=== PATIENT | female | born 1960 | race Caucasian/White ===

== ENCOUNTER 2017-12-17 05:19 | Inpatient (IN) | payer OTHER, MEDICARE ==
[~2017-12-17] VITALS: Ht 160 cm; Wt 73.6 kg
[~2017-12-17 05:19] MED LIST: ABIL10TA8 PO; CLON2TAB PO; CYCL7.5E EACH EYE; EFFE150C PO; VENL75XR PO; WELL200T PO
[2017-12-17] MEDS ORDERED: LACTATED RINGER'S 1000 ML IV PRN (05:45)
[2017-12-17] MEDS ORDERED: METOPROLOL TARTRATE 25 MG TAB PO PRN (06:00)
[2017-12-17] MEDS ORDERED: CHLORHEXIDINE GLUCONATE 2 % 1 PACK (2 CLOTHS) TOPICAL PRN (06:00)
[2017-12-17] MEDS ORDERED: VANCOMYCIN 1000 MG/NS 250 ML (for <70 kg) IV SCH ×2 (06:00)
[2017-12-17] MEDS ORDERED: SODIUM CHLORID 0.9% 500 ML IV PRN (06:00)
[2017-12-17] MEDS ORDERED: POVIDONE IODINE 5% (ANTISEPSIS KIT) 4 APPLICATIONS EACH NARE PRN (06:00)
[2017-12-17] MEDS ORDERED: ceFAZolin 2 GM PREMIX 50 ML IV SCH (06:00)
[2017-12-17] MEDS ORDERED: CHLORHEXIDINE GLUCONATE 4% SOLN 120 ML BTL TOPICAL SCH (06:00)
[2017-12-17] MEDS ORDERED: FAMOTIDINE 20 MG/2 ML VIAL ONE (06:38)
[2017-12-17 06:57] LABS: AUTOMATED NEUTROPHIL # 2.6 TH/MM3 (1.8-7.7); BASOPHIL % 0.5 % (0.0-2.0); EOSINOPHIL # 0.1 TH/MM3 (0-0.4); EOSINOPHIL % 1.4 % (0.0-4.0); HEMATOCRIT 34.2 % (35.0-46.0); LYMPH % 39.6 % (9.0-44.0); MEAN CELL VOLUME 77.4 FL (80.0-100.0); MEAN CORPUSCULAR HGB CONC 32.3 % (32.0-36.0); MEAN PLATELET VOLUME 7.4 FL (7.0-11.0); MONOCYTE # 0.4 TH/MM3 (0-0.9); NEUT % 51.5 % (16.0-70.0); PLATELET COUNT 408 TH/MM3 (150-450); RED BLOOD COUNT 4.42 MIL/MM3 (4.00-5.30); RED CELL DISTRIBUTION WIDTH 17.9 % (11.6-17.2); WHITE BLOOD COUNT 5.1 TH/MM3 (4.0-11.0)
[2017-12-17 07:14] LABS: CALCIUM 8.6 MG/DL (8.5-10.1); CREATININE 0.66 MG/DL (0.50-1.00)
[2017-12-17] MEDS ORDERED: WHEEMIS3 (07:16)
[2017-12-17] MEDS ORDERED: WALKER/ADULT/FO1 MIS (07:16)
[2017-12-17] MEDS ORDERED: HYDR-3583 PO (07:16)
[2017-12-17] MEDS ORDERED: GABA300C5 PO (07:16)
[2017-12-17] MEDS ORDERED: MIDAZOLAM HCL 2 MG/2 ML VIAL ONE ×2 (07:51→11:10)
[2017-12-17] MEDS ORDERED: TRANEXAMIC ACID IV SCH (08:30)
[2017-12-17] MEDS ORDERED: SODIUM CHLORIDE 0.9% IV SCH (08:30)
[2017-12-17] MEDS ORDERED: BUPIVACAINE HCL PF 0.5% 30 ML VIAL ONE (08:40)
[2017-12-17] MEDS ORDERED: GENTAMICIN SULFATE 80 MG/2 ML VIAL ONE (08:43)
[2017-12-17] MEDS ORDERED: BUPIVACAINE/EPINEPHRINE 0.25% 50 ML VIAL ONE (08:43)
[2017-12-17] MEDS ORDERED: ceFAZolin INJ 1,000 MG VIAL ONE (08:44)
--- NOTE | 2017-12-17 10:16 | PD.OP ---
cc: Zachary Dooley MD Operative Report Date of Surgery: Dec 17, 2017 Preoperative Diagnosis: Severe left leg pain, peripheral neuropathy, history of left knee arthrodesis Postoperative Diagnosis: Procedure: Left above-knee amputation, removal of hardware left femur Anesthesia: Gen. Surgeon: Zachary Dooley Platform Man(s): LAURE Carpenter PA-C The surgical procedure was assisted by my physician field assistant. My P.A. presence was necessary throughout this case for the manipulation and positioning of the surgical extremity. My P.A. was assisting me throughout the duration of this procedure. The skill set of a physician field assistant was medically necessary to complete this procedure. During the surgical case the regional vice president surgical sales was working at the back table and the physician field assistant was directly assisting me. Operation and Findings: Citlaly has a very complex history regarding her left leg. She has had previous left knee replacements but developed severe pain and subsequently underwent revision. This also resulted in severe pain. She then went on to a knee arthrodesis. She has had continued chronic severe pain and difficulty ambulating secondary to severe leg length discrepancy. Patient wished to proceed with above-knee amputation and removal of hardware. Informed consent was obtained preoperatively and operative site was marked. Treatment options were discussed with patient and informed consent was obtained after detailed discussion of the risk and benefits. Patient was brought to the OR and placed on the OR table. IV sedation and GETA were administered by anesthesia and IV antibiotics were given. The left leg was prepped with alcohol, followed by Hibiclens and draped in the usual sterile fashion. Time out procedure was performed. The procedure began with a standard incision for above amputation. The subcutaneous tissue was dissected with Bovie. The quadriceps muscle and fascia were incised with Bovie. The hamstring muscles were also incised. Soft tissue was retracted from the femur. The sciatic nerve and femoral vessels were identified. Vessels were ligated with silk suture ties. Sciatic nerve was also ligated with a silk suture tie. Nerve sheath was injected with quarter percent Marcaine. The nerve was now transected proximal to the level of the femur cut. The remainder of the posterior flap was now incised using a Bovie. Oscillating saw and Gigli saw were used to cut through the femur. At this point attention was turned hardware removal. The bone of the femur was cut circumferentially. Attempts are made to remove the intramedullary nail from the femur. After unsuccessful attempts of directly pulling the proximal end of the nail out of the femur attention was turned towards removing the lower extremity from around the nail. An incision was made along the area of the distal leg from the patella down to the proximal tibia. Full-thickness flaps were elevated. Using an oscillating saw a window was cut in the proximal end of the tibia to allow for further visualization of the nail. The tibia was now loosened from the adela. The lower extremity was now removed from the intramedullary adela. At this point large by prescription were placed around the distal end of the nail. Using a mallet the nail was back slapped and removed from the femur. Attention was now turned back towards the amputation. At this point, attention was turned to hemostasis. The wound was thoroughly irrigated. All areas of bleeding were identified and hemostasis was obtained. The edges of the bone were smoothed with a rasp. A drain was placed deep. Attention was now turned to closure. Drill holes were made in the femur. A myodesis was performed of the abductor tendon and quadriceps tendon. The quadriceps fascia was now closed to the posterior hamstring fascia with #1 Vicryl. The subcutaneous tissues were closed with 3-0 Vicryl and skin was closed with 3-0 nylon. Sterile dressings were applied. The patient was awakened and transferred to recovery in stable condition. Needle and sponge counts were correct. Zachary Dooley MD Dec 17, 2017 10:16
[2017-12-17] MEDS ORDERED: DO NOT ADM ANY ANTICOAGULANT DRUGS PRN (10:45)
[2017-12-17] MEDS ORDERED: ASPI-516 CHEW (11:00)
[2017-12-17] MEDS ORDERED: *morphine SULFATE 4 MG/ML PERIprocedure ONLY ONE ×2 (11:29→11:37)
[2017-12-17] MEDS ORDERED: LIDOCAINE HCL 1% PF 5 ML SYRINGE OTHER ONE (12:00)
[2017-12-17] MEDS ORDERED: ONDANSETRON HCL 4 MG/2 ML VIAL IV PUSH ONE (12:00)
[2017-12-17] MEDS ORDERED: GLYCOPYRROLATE 1 MG/5 ML SYRINGE IV PUSH ONE (12:00)
[2017-12-17] MEDS ORDERED: LACTATED RINGER'S 1000 ML INJ 1,000 ML IV ONE (12:00)
[2017-12-17] MEDS ORDERED: ePHEDrine/NS 25 MG/5 ML SYRINGE IV ONE (12:00)
[2017-12-17] MEDS ORDERED: DEXAMETHASONE SOD PHOS 4 MG/ML VIAL IV ONE (12:00)
[2017-12-17] MEDS ORDERED: PROPOFOL 200 MG/20 ML AMP IV ONE (12:00)
[2017-12-17] MEDS ORDERED: PHENYLEPH/NS 1000 MCG/10 ML SYR IV ONE (12:00)
[2017-12-17] MEDS: ACETAMINOPHEN/HYDROcodone 325 MG/10 MG TAB PO PRN ×4 (12:21→22:58)
[2017-12-17] MEDS: MORPHINE SULFATE 4 MG/ML INJ IV PUSH PRN ×3 (14:37→22:22)
[2017-12-17 19:40] VITALS: BP 104/73; PULSE 93; RESP 17; TEMP 97.2; O2SAT 94
[2017-12-17] MEDS: buPROPion HCL 100 MG SUSTAINED RELEASE TAB PO SCH (19:42)
[2017-12-17] MEDS: clonazePAM 1 MG TAB PO SCH (19:42)
[2017-12-17] MEDS: ASPIRIN 81 MG CHEW TAB CHEW SCH (19:43)
[2017-12-17 20:30] VITALS: O2SAT 95
[2017-12-17] MEDS ORDERED: PTOWN: RESTASIS (CYCLOSPORINE) 0.05% 1 DROP EACH EYE BID EACH EYE SCH (21:00)
[2017-12-17 23:45] VITALS: BP 106/77; PULSE 105; RESP 17; TEMP 98.4; O2SAT 94
[2017-12-18] MEDS: MORPHINE SULFATE 4 MG/ML INJ IV PUSH PRN ×6 (01:33→18:34)
[2017-12-18] MEDS: ACETAMINOPHEN/HYDROcodone 325 MG/10 MG TAB PO PRN ×6 (02:08→19:42)
[2017-12-18 04:00] VITALS: BP 103/59; PULSE 90; RESP 16; TEMP 97.6; O2SAT 94
--- NOTE | 2017-12-18 06:30 | PD.ORT.PN ---
Subjective Subjective Remarks POD 1 s/p removal of HW and left AKA doing well. pain controlled. patient reports she is out of bed with walker and pain is minimal. reports that the dressings slid off a couple times last night and that the drain came out Objective Vitals Vital Signs Date Time Temp Pulse Resp B/P (MAP) Pulse Ox O2 Delivery O2 Flow Rate FiO2 12/18/17 04:00 97.6 90 16 103/59 (74) 94 12/17/17 23:45 98.4 105 17 106/77 (87) 94 12/17/17 20:30 95 21 12/17/17 19:40 97.2 93 17 104/73 (83) 94 12/17/17 17:07 18 12/17/17 15:00 104 14 104/57 (73) 95 Room Air 12/17/17 14:45 14 12/17/17 14:00 91 14 102/59 (73) 94 Room Air 12/17/17 13:00 88 12 110/64 (79) 93 Room Air 12/17/17 12:00 100 14 103/53 (70) 94 Room Air 12/17/17 11:30 98.2 94 14 106/56 (73) 94 Room Air 12/17/17 11:15 102 16 110/66 (81) 95 Room Air 12/17/17 11:00 98 14 117/72 (87) 96 Nasal Cannula 2 12/17/17 10:57 98.1 100 14 119/76 (90) 97 Nasal Cannula 2 12/17/17 06:39 97.9 80 20 133/83 (100) 97 I/O 12/17/17 12/17/17 12/17/17 12/18/17 12/18/17 12/18/17 07:00 15:00 23:00 07:00 15:00 23:00 Intake Total 1700 ml 840 ml Output Total 250 ml 450 ml Balance 1450 ml 390 ml Intake Oral 840 ml Other 1700 ml Output Urine Total 450 ml Estimated Blood Loss 250 ml # Voids 1 # Bowel Movements 0 Result Diagram: 12/17/17 0635 12/17/17 0635 Objective Remarks LLE: dressings clean and dry. intact. Assessment & Plan Assessment and Plan 1) Removal of HW with Left AKA - POD 1 -NWB -daily dressing changes -if dressings continue to slip off of stump, can anchor dressings to hip with JASMYNE wrap using hip spica technique -plan for discharge home with [facility] on Saturday Westley Villalpando/First Nguyen AUGUSTINE Dec 18, 2017 06:30
--- NOTE | 2017-12-18 06:51 | HHI.FF ---
Face to Face Verification Diagnosis: (1) Above knee amputation of left lower extremity Physical Therapy Gait training, Wheelchair training Left LE Weight Bearing: Non WB, No Strengthening, No Quad Sets Nursing Dressing Changes: Daily dressing change, John wrap, 4x4s, Xeroform I have seen patient Citlaly Arias on 12/18/17. My clinical findings support the need for the requested home health care services because: Ltd mobility - disease progression I certify that my clinical findings support that this patient is homebound because: Post-op weakness Westley Villalpando/Cadd Instructor PA Dec 18, 2017 06:51
[2017-12-18 08:00] VITALS: BP 106/72; PULSE 88; RESP 17; TEMP 97.9; O2SAT 94
[2017-12-18] MEDS: ASPIRIN 81 MG CHEW TAB CHEW SCH ×2 (08:31→19:42)
[2017-12-18] MEDS: ARIPiprazole 5 MG TAB PO SCH (08:31)
[2017-12-18] MEDS: clonazePAM 1 MG TAB PO SCH ×2 (08:32→19:42)
[2017-12-18] MEDS: buPROPion HCL 100 MG SUSTAINED RELEASE TAB PO SCH ×2 (08:32→19:42)
[2017-12-18] MEDS: VENLAFAXINE HCL XR 75 MG CAP PO SCH (08:36)
[2017-12-18 09:31] LABS: HEMATOCRIT 26.8 % (35.0-46.0); HEMOGLOBIN 8.8 GM/DL (11.6-15.3)
[2017-12-18] MEDS ORDERED: INFLUENZA VIRUS VACCINE (QUADRIVALENT) 0.5 ML SYR IM ONE (10:00)
[2017-12-18 12:00] VITALS: BP 98/80; PULSE 93; RESP 17; TEMP 96.7; O2SAT 94
[2017-12-18 16:00] VITALS: BP 129/74; PULSE 88; RESP 17; TEMP 96.8; O2SAT 95
[2017-12-18 16:56] VITALS: O2SAT 94
[2017-12-18 20:45] VITALS: BP 107/72; PULSE 92; RESP 17; TEMP 96.4; O2SAT 94
[2017-12-19] MEDS: ACETAMINOPHEN/HYDROcodone 325 MG/10 MG TAB PO PRN ×7 (00:14→21:50)
[2017-12-19 00:45] VITALS: BP 95/62; PULSE 98; RESP 17; TEMP 98.1; O2SAT 93
[2017-12-19] MEDS: MORPHINE SULFATE 4 MG/ML INJ IV PUSH PRN ×7 (01:16→23:20)
[2017-12-19 04:50] VITALS: BP 118/67; PULSE 96; RESP 17; TEMP 98.4; O2SAT 94
--- NOTE | 2017-12-19 06:32 | PD.ORT.PN ---
Subjective Subjective Remarks POD 2 s/p removal of HW and left AKA doing well. pain controlled. patient reports she is out of bed with walker and pain is minimal. Objective Vitals Vital Signs Date Time Temp Pulse Resp B/P (MAP) Pulse Ox O2 Delivery O2 Flow Rate FiO2 12/19/17 04:50 98.4 96 17 118/67 (84) 94 12/19/17 00:45 98.1 98 17 95/62 (73) 93 12/18/17 20:45 96.4 92 17 107/72 (84) 94 12/18/17 17:04 18 12/18/17 16:56 94 12/18/17 16:00 96.8 88 17 129/74 (92) 95 12/18/17 15:50 18 12/18/17 12:00 96.7 93 17 98/80 (86) 94 12/18/17 08:00 97.9 88 17 106/72 (83) 94 I/O 12/18/17 12/18/17 12/18/17 12/19/17 12/19/17 12/19/17 07:00 15:00 23:00 07:00 15:00 23:00 Intake Total 480 ml 480 ml 720 ml 480 ml Balance 480 ml 480 ml 720 ml 480 ml Intake Oral 480 ml 480 ml 720 ml 480 ml # Voids 2 3 4 2 # Bowel Movements 0 0 0 0 Result Diagram: 12/18/17 0820 12/17/17 0635 Objective Remarks LLE: dressings clean and dry. intact. Assessment & Plan Assessment and Plan 1) Removal of HW with Left AKA - POD 2 -NWB -daily dressing changes -if dressings continue to slip off of stump, can anchor dressings to hip with JASMYNE wrap using hip spica technique -plan for discharge home with [facility] on Saturday -will change dressing tomorrow at bedside and plan for discharge at that point Westley Villalpando/First Nguyen AUGUSTINE Dec 19, 2017 06:32
[2017-12-19 07:59] VITALS: BP 107/67; PULSE 100; RESP 17; TEMP 98.4; O2SAT 93
[2017-12-19] MEDS: ASPIRIN 81 MG CHEW TAB CHEW SCH ×2 (08:45→20:17)
[2017-12-19] MEDS: VENLAFAXINE HCL XR 75 MG CAP PO SCH (08:45)
[2017-12-19] MEDS: clonazePAM 1 MG TAB PO SCH ×2 (08:45→20:17)
[2017-12-19] MEDS: buPROPion HCL 100 MG SUSTAINED RELEASE TAB PO SCH ×2 (08:46→20:19)
[2017-12-19] MEDS: ARIPiprazole 5 MG TAB PO SCH (08:50)
[2017-12-19] MEDS ORDERED: ADJUSTABLE COMM1 MIS (09:11)
[2017-12-19 12:00] VITALS: BP 138/71; PULSE 102; RESP 17; TEMP 98.2; O2SAT 92
[2017-12-19 16:00] VITALS: BP 110/62; PULSE 96; RESP 17; TEMP 98.5; O2SAT 91
[2017-12-19 20:00] VITALS: BP 119/75; PULSE 99; RESP 16; TEMP 99.1; O2SAT 94
[2017-12-20] VITALS: BP 127/71; PULSE 100; RESP 15; TEMP 98.5; O2SAT 93
[2017-12-20] MEDS: ACETAMINOPHEN/HYDROcodone 325 MG/10 MG TAB PO PRN ×4 (00:40→10:13)
[2017-12-20] MEDS: MORPHINE SULFATE 4 MG/ML INJ IV PUSH PRN ×2 (02:04→05:42)
[2017-12-20 04:00] VITALS: BP 134/70; PULSE 98; RESP 15; TEMP 98.3; O2SAT 94
--- NOTE | 2017-12-20 06:43 | PD.ORT.PN ---
Subjective Subjective Remarks POD 3 s/p removal of HW and left AKA doing well. pain controlled. patient reports she is out of bed with walker and pain is minimal. Objective Vitals Vital Signs Date Time Temp Pulse Resp B/P (MAP) Pulse Ox O2 Delivery O2 Flow Rate FiO2 12/20/17 00:00 98.5 100 15 127/71 (89) 93 12/19/17 22:46 21 12/19/17 20:00 99.1 99 16 119/75 (90) 94 12/19/17 19:17 Room Air 12/19/17 16:00 98.5 96 17 110/62 (78) 91 12/19/17 12:00 98.2 102 17 138/71 (93) 92 12/19/17 07:59 98.4 100 17 107/67 (80) 93 I/O 12/19/17 12/19/17 12/19/17 12/20/17 12/20/17 12/20/17 07:00 15:00 23:00 07:00 15:00 23:00 Intake Total 480 ml 480 ml 900 ml Balance 480 ml 480 ml 900 ml Intake Oral 480 ml 480 ml 900 ml # Voids 2 3 1 # Bowel Movements 0 0 Result Diagram: 12/18/17 0820 12/17/17 0635 Objective Remarks LLE: dressings clean and dry. intact. dressings removed and incision visualized. clean and dry. no drainage. no erythema. Assessment & Plan Assessment and Plan 1) Removal of HW with Left AKA - POD 3 -NWB -dressing changed at bedside today and converted to xeroform/primapore -discharge home today with [facility] -f/u with [facility] or [facility] in 2 weeks Westley Villalpando/Drum Sander Setter [facility] Dec 20, 2017 06:42
--- NOTE | 2017-12-20 06:47 | HHI.FF ---
Face to Face Verification Diagnosis: (1) Above knee amputation of left lower extremity Physical Therapy Gait training Left LE Weight Bearing: Non WB, No Strengthening Nursing Dressing Changes: Daily dressing change, Xeroform, Coverderm/Primapore (if develops skin irritation from primapore, transition back to 4x4s and JASMYNE wrap) I have seen patient Citlaly Arias on 12/20/17. My clinical findings support the need for the requested home health care services because: Ltd mobility - disease progression I certify that my clinical findings support that this patient is homebound because: Post-op weakness Westley Villalpando/Television Mechanic PA Dec 20, 2017 06:46
--- NOTE | 2017-12-20 06:49 | HHI.DS ---
Discharge Summary Admission Date Dec 17, 2017 at 05:19 Discharge Date: Dec 20, 2017 Admitting Diagnosis Painful hardware from left knee fusion Diagnosis: (1) Above knee amputation of left lower extremity Diagnosis: Principal ICD Codes: Z89.612 - Acquired absence of left leg above knee Procedures Removal of hardware with conversion to left above-knee amputation Brief History CBC/BMP: 12/18/17 0820 12/17/17 0635 Significant Findings Laboratory Tests Test 12/18/17 08:20 Hemoglobin 8.8 GM/DL (11.6-15.3) Hematocrit 26.8 % (35.0-46.0) PE at Discharge LLE: dressings clean and dry. intact. dressings removed and incision visualized. clean and dry. no drainage. no erythema. Hospital Course Patient admitted from outpatient basis for elective removal of hardware with conversion amputation. The patient has a long-standing history of the left knee effusion with multiple infections and significant pain. She tolerated the procedure well was admitted to [address] [place] [address]. She was out of bed on postop day 1 using a walker with minimal discomfort. Daily dressing changes were initiated on postoperative day 1. By postoperative day 3, her pain is well-controlled, she was hemodynamically stable, she is fit for discharge home with home health care. She'll have daily dressing changes and will remain nonweightbearing. She 'll follow up in the office Dr. López or his PA in 2 weeks Pt Condition on Discharge: Good Discharge Disposition: Disch w/ Home Health Serv Discharge Instructions Diet Instructions: As Tolerated, No Restrictions Activities You Can Perform: Non Weight Bearing Follow up Referrals: Orthopedics - 2 Weeks @ [facility] with Zachary López MD [facility]/ with [facility] New Medications: Adjustable Commode 3-in-1 (Adjustable Commode 3-in-1) 1 Mis Mis EA .ROUTE DIRECTED, #1 Aspirin (Aspirin) 81 Mg Chew 81 MG CHEW BID for blood clot prevention for 30 Days, #60 TAB 0 Refills Gabapentin (Gabapentin) 300 Mg Cap 300 MG PO TID for Pain Management, #90 CAP 0 Refills Hydrocodone-Acetaminophen (Hydrocodone-Acetaminophen) 10-325 mg Tab 1 TAB PO Q4H PRN for PAIN, #60 TAB 0 Refills Walker/Adult/Folding (Walker/Adult/Folding) 1 Mis Mis EA .ROUTE DIRECTED, #1 0 Refills Wheelchair (Wheelchair) 1 Mis Mis EA .ROUTE DIRECTED, #1 0 Refills Continued Medications: Aripiprazole (Abilify) 10 Mg Tab 5 MG PO DAILY, #30 TAB 0 Refills Bupropion HCl ER 12 HR (Wellbutrin SR 12 HR) 200 Mg Tab 200 MG PO Q12HR for Control Depression, TAB 0 Refills Clonazepam (Clonazepam) 2 Mg Tab 2 MG PO BID, #60 TAB 0 Refills Cyclosporine Opth (Restasis Multidose Opth) 0.05% Emul 1 DROP EACH EYE BID for Dry Eye, #1 BOTTLE 0 Refills Venlafaxine ER 24 HR (Effexor XR 24 HR) 150 Mg Cap 150 MG PO DAILY, #30 CAP 0 Refills Venlafaxine ER 24 HR (Effexor XR 24 HR) 75 Mg Cap 75 MG PO DAILY, #30 CAP 0 Refills Westley Villalpando/Swimming Pool Plasterer Helper [facility] Dec 20, 2017 06:49
[2017-12-20 08:00] VITALS: BP 135/68; PULSE 98; RESP 17; TEMP 97.8; O2SAT 96
[2017-12-20] MEDS: clonazePAM 1 MG TAB PO SCH (09:01)
[2017-12-20] MEDS: buPROPion HCL 100 MG SUSTAINED RELEASE TAB PO SCH (09:02)
[2017-12-20] MEDS: VENLAFAXINE HCL XR 75 MG CAP PO SCH (09:02)
[2017-12-20] MEDS: ASPIRIN 81 MG CHEW TAB CHEW SCH (09:02)
[2017-12-20] MEDS: ARIPiprazole 5 MG TAB PO SCH (09:02)
[2017-12-20 11:30] VITALS: BP 109/70; PULSE 102; RESP 18; TEMP 97.5; O2SAT 96
[2017-12-20] MEDS ORDERED: BISACODYL 10 MG SUPP RECTAL PRN (11:30)
[2017-12-20] MEDS ORDERED: LACTULOSE SYRUP 20 GM/30 ML CUP PO PRN (11:30)
[2017-12-20] MEDS ORDERED: MAGNESIUM HYDROXIDE SUSP 30 ML CUP PO PRN (11:30)
== END 2017-12-20 11:29 | disposition home health service (06) | DRG 465 ==
LOC: HSDI 05:19 → N06B 15:45 → N06A 12-18 09:49
PROVIDERS: ADMIT Orthopaedic Surgery Orthopaedic Trauma; ATTEND Orthopaedic Surgery Orthopaedic Trauma
PROC: 0Y6D0Z3 Detachment at Left Upper Leg, Low, Open Approach (ICD-10-PCS; 2017-12-17)
PROC: 0SPU0JZ Removal of Synthetic Substitute from Left Knee Joint, Femoral Surface, Open Approach (ICD-10-PCS; principal; 2017-12-17 08:36)
DX: T84.84XA Pain due to internal orthopedic prosthetic devices, implants and grafts, initial encounter (principal); G62.9 Polyneuropathy, unspecified; Y83.1 Surgical operation with implant of artificial internal device as the cause of abnormal reaction of the patient, or of later complication, without mention of misadventure at the time of the procedure; M21.70 Unequal limb length (acquired), unspecified site; Z87.891 Personal history of nicotine dependence; Z23 Encounter for immunization
CPT/HCPCS: 80048; 85014; 85018; 85025; 88307; 88311; 90471; 90686; 94150; G0008; J0690; J1100; J1580; J2250; J2270; J2370; J2405; J3010; J3370; J7050; J7120; Q2038